=== PATIENT | female | born 1985 | race Caucasian/White ===

== ENCOUNTER 2019-04-09 06:12 | Inpatient (IN) ==
[2019-04-09] MEDS ORDERED: CeFAZolin Syr 2,000MG/20 ML 2,000 MG/20 ML SYRINGE IVPB ONE (06:32)
[2019-04-09] MEDS ORDERED: *HR* Promethazine 25 MG/ML VIAL IVP PRN (06:34)
[2019-04-09] MEDS ORDERED: *HR* HYDROmorphone (PF) 1 MG/ML SYRINGE IVP PRN (06:34)
[2019-04-09] MEDS ORDERED: *HR* OxyCODONE Immed Rel 5 MG TABLET PO PRN (06:34)
[2019-04-09] MEDS ORDERED: Gabapentin 300 MG CAPSULE PO ONE (06:35)
[2019-04-09] MEDS ORDERED: Albuterol 2.5 MG/3 ML NEBULIZER IH ONE (06:35)
[2019-04-09] MEDS ORDERED: Celecoxib 200 MG CAPSULE PO ONE (06:35)
[2019-04-09] MEDS ORDERED: Ringers Solution, Lactated 1,000 ML IVC SCH ×2 (06:45)
[2019-04-09] MEDS ORDERED: Lidocaine -MPF 2% 2 ML VIAL ONE (06:57)
[2019-04-09] MEDS ORDERED: Ondansetron 4 MG/2 ML VIAL ONE (06:57)
[2019-04-09] MEDS ORDERED: *HR* Succinylcholine 200 MG/10 ML VIAL IVP ONE (06:57)
[2019-04-09] MEDS ORDERED: *HR* Propofol 200 MG/20 ML VIAL IVP ONE ×2 (06:58→07:55)
[2019-04-09] MEDS ORDERED: Dexamethasone 4 MG/ML VIAL ONE ×2 (06:58→12:02)
[2019-04-09] MEDS ORDERED: *HR* FentaNYL (PF) 100 MCG/2 ML VIAL ONE ×3 (06:58→08:27)
[2019-04-09] MEDS ORDERED: *HR* Midazolam HCl 5 MG/5 ML VIAL IVP ONE (06:58)
[2019-04-09] MEDS ORDERED: PROPOFOL ONE (07:08)
[2019-04-09] MEDS ORDERED: Dexmedetomidine HCl 400 MCG/100 ML MLS IVC ONE (07:09)
[2019-04-09] MEDS ORDERED: *HR* Magnesium Sulfate 1 GM/2 ML VIAL ONE (07:12)
[2019-04-09] MEDS ORDERED: Bacitracin 50,000 UNIT, Polymyxin B Sulfate 500,000 UNIT, Sodium Chloride IRRigation 1,... IR ONE (07:45)
[2019-04-09] MEDS ORDERED: *HR* Rocuronium Bromide 50 MG/5 ML VIAL ONE (08:28)
[2019-04-09] MEDS ORDERED: *HR* PHENYLEPHRINE 1,000 MCG/10 ML SYRINGE IVP ONE ×3 (09:04→12:04)
[2019-04-09] MEDS ORDERED: Lidocaine HCL 4 ML Topical Solution (Laryng-O-Jet Kit Sterile Pak) TP ONE (09:35)
[2019-04-09] MEDS ORDERED: Propofol 500 MG/50 ML INFUS..BTL ONE ×5 (09:45→11:50)
[2019-04-09] MEDS ORDERED: Lidocaine -MPF 2% 5 ML VIAL ONE (11:26)
[2019-04-09] MEDS ORDERED: Esmolol 100 MG/10 ML VIAL IVP ONE (12:45)
[2019-04-09] MEDS ORDERED: *HR* HYDROMORPHONE 2 MG/ML VIAL ONE (13:33)
[2019-04-09] MEDS ORDERED: Naloxone 0.4 MG/ML INJ IVP PRN (15:49)
[2019-04-09] MEDS ORDERED: traZODone 50 MG TABLET PO PRN (15:49)
[2019-04-09] MEDS ORDERED: Ondansetron 4 MG/2 ML VIAL IVP PRN (15:49)
[2019-04-09] MEDS ORDERED: Acetaminophen 325 MG TABLET PO PRN (15:49)
[2019-04-09] MEDS ORDERED: Famotidine 20 MG TABLET PO PRN (15:49)
[2019-04-09] MEDS: ceFAZolin 2,000 MG in 0.9 % Sodium Chloride 100 ML IVPB SCH ×2 (17:04→23:41)
[2019-04-09] MEDS: *HR* HYDROcodone/Acet 5/325 mg TABLET PO PRN (17:35)
[2019-04-09] MEDS: *HR* OxyCODONE Immed Rel 5 MG TABLET PO PRN ×2 (19:27→23:41)
[2019-04-10] MEDS: *HR* OxyCODONE Immed Rel 5 MG TABLET PO PRN ×4 (03:54→18:15)
[2019-04-10] MEDS: *HR* HYDROcodone/Acet 5/325 mg TABLET PO PRN ×2 (06:44→15:09)
[2019-04-10 06:58] LABS: Basophils % 0.1 %; Hematocrit 23.6 % (35.3-44.9); Hemoglobin 8.1 g/dL (11.5-15.4); Immature Granulocytes % 0.4 % (0-4); Lymphocytes # 2.1 K/mcL (0.6-4.6); Lymphocytes % 20.8 %; Mean Corpuscular HGB Conc 34.3 g/dL (31.6-35.5); Mean Corpuscular Hemoglobin 31.2 pg (28.0-33.3); Mean Corpuscular Volume 90.8 fL (83.0-100.0); Mean Platelet Volume 9.5 fL (9.4-12.4); Monocytes # 0.8 K/mcL (0.0-1.3); Monocytes % 7.7 %; Neutrophils # 7.3 K/mcL (1.6-8.9); Platelet Count 273 K/mcL (140-400); Red Cell Distribution Width 12.4 % (11.5-14.5); White Blood Count 10.2 K/mcL (4.3-11.1)
[2019-04-10] MEDS: Venlafaxine XR (24 HR) 75 MG CAP.ER.24H PO SCH (08:40)
[2019-04-10] MEDS: ARIPiprazole 10 MG TABLET PO SCH (08:41)
[2019-04-10] MEDS ORDERED: LEVONORGESTREL ETHIN ESTRADIOL PO SCH (09:00)
[2019-04-10] MEDS: Ringers Solution, Lactated 1,000 ML IVC SCH ×3 (10:25→20:55)
[2019-04-10] MEDS: Gabapentin 400 MG CAPSULE PO SCH ×2 (15:09→20:43)
[2019-04-10] MEDS: LEVONORGESTREL ETHIN ESTRADIOL PO SCH (18:44)
[2019-04-11] MEDS: *HR* HYDROcodone/Acet 5/325 mg TABLET PO PRN (01:44)
[2019-04-11] MEDS: Ringers Solution, Lactated 1,000 ML IVC SCH ×2 (01:45→18:30)
[2019-04-11] MEDS: *HR* OxyCODONE Immed Rel 5 MG TABLET PO PRN ×5 (04:00→22:25)
[2019-04-11] MEDS: ARIPiprazole 10 MG TABLET PO SCH (08:13)
[2019-04-11] MEDS: Gabapentin 400 MG CAPSULE PO SCH ×3 (08:13→20:21)
[2019-04-11] MEDS: Venlafaxine XR (24 HR) 75 MG CAP.ER.24H PO SCH (08:14)
[2019-04-11 11:48] LABS: Hematocrit 21.4 % (35.3-44.9); Hemoglobin 7.3 g/dL (11.5-15.4)
[2019-04-11] MEDS: Acetaminophen IV 1,000 MG/100 ML INFUS..BTL IVPB SCH ×2 (13:13→20:13)
[2019-04-11] MEDS: LEVONORGESTREL ETHIN ESTRADIOL PO SCH (18:30)
[2019-04-12] MEDS: Acetaminophen IV 1,000 MG/100 ML INFUS..BTL IVPB SCH ×2 (03:51→06:23)
[2019-04-12] MEDS: *HR* OxyCODONE Immed Rel 5 MG TABLET PO PRN ×3 (04:02→15:37)
[2019-04-12] MEDS: ARIPiprazole 10 MG TABLET PO SCH (09:41)
[2019-04-12] MEDS: Gabapentin 400 MG CAPSULE PO SCH ×2 (09:41→15:36)
[2019-04-12] MEDS: Venlafaxine XR (24 HR) 75 MG CAP.ER.24H PO SCH (09:41)
[2019-04-12] MEDS: Ringers Solution, Lactated 1,000 ML IVC SCH (10:01)
[2019-04-12 11:21] LABS: Basophils % 0.3 %; Eosinophils # 0.1 K/mcL (0.0-0.6); Eosinophils % 1.2 %; Hematocrit 20.9 % (35.3-44.9); Hemoglobin 7.3 g/dL (11.5-15.4); Immature Granulocytes % 0.3 % (0-4); Lymphocytes # 2.1 K/mcL (0.6-4.6); Lymphocytes % 31.5 %; Mean Corpuscular HGB Conc 34.9 g/dL (31.6-35.5); Mean Corpuscular Hemoglobin 31.2 pg (28.0-33.3); Mean Corpuscular Volume 89.3 fL (83.0-100.0); Mean Platelet Volume 9.8 fL (9.4-12.4); Monocytes # 0.6 K/mcL (0.0-1.3); Monocytes % 8.5 %; Neutrophils # 3.9 K/mcL (1.6-8.9); Platelet Count 243 K/mcL (140-400); Red Blood Count 2.34 M/mcL (3.82-4.97); Red Cell Distribution Width 12.7 % (11.5-14.5); Segmented Neutrophils % 58.2 %; White Blood Count 6.7 K/mcL (4.3-11.1)
[2019-04-12 11:41] LABS: BUN/Creatinine Ratio 12 (6-26); Blood Urea Nitrogen 7 mg/dL (6-20); Calcium 8.6 mg/dL (8.6-10.3); Carbon Dioxide 29 mEq/L (23-29); Chloride 101 mEq/L (98-107); Glucose 102 mg/dL (70-105); Osmolality,Calculated 286 (280-300); Potassium 3.9 mEq/L (3.5-5.1); Sodium 139 mEq/L (136-145); eGFR For African Americans > 60 (> 60); eGFR For Non-African Americans > 60 (> 60)
[2019-04-12 15:25] VITALS: BP 114/72
== END 2019-04-12 16:34 | disposition home or self-care (01) | DRG 304 ==
LOC: SAMDAY 06:12 → 3NENU 15:48
PROVIDERS: ADMIT Orthopaedic Surgery Orthopaedic Surgery of the Spine; ATTEND Orthopaedic Surgery Orthopaedic Surgery of the Spine